=== PATIENT | male | born 1960 | race Caucasian/White ===

== ENCOUNTER 2024-07-29 02:59 | Emergency (ER) | payer OTHER ==
[~2024-07-29] VITALS: Ht 177.8 cm; Wt 110.0 kg
[2024-07-29 03:18] LABS: EOSINOPHILS 3.2 % (0-6); HEMATOCRIT 45.1 % (35.0-50.0); HEMOGLOBIN 15.5 g/dL (12.0-18.0); LYMPHOCYTES 28.4 % (24-44); MCH 31.2 (27-36); MCHC 34.5 g/dl (30-36); MCV 90.4 fl (81-99); MONOCYTES 11.5 % (0-12); NEUTROPHILS 55.9 % (39-80); PLATELET COUNT 246 K/uL (140-440); RBC 4.99 M/ul (4.3-5.7); RDW 13.4 (10.5-15.0)
[2024-07-29] MEDS ORDERED: KETOROLAC TROMETHAMINE 15 MG/ML VIAL IV ONE (03:30)
[2024-07-29] MEDS ORDERED: ondansetron HCL 4 MG/2 ML VIAL IV ONE (03:30)
[2024-07-29] MEDS ORDERED: TAMSULOSIN HCL 0.4 MG CAP PO ONE (03:30)
[2024-07-29] MEDS ORDERED: LACTATED RINGER'S 1,000 ML IV ONE (03:30)
[2024-07-29] MEDS ORDERED: HYDROmorphone HCL 1 MG/ML SYR IV PRN (03:30)
[2024-07-29 03:42] LABS: ALBUMIN 3.8 g/dL (3.4-5.0); ALBUMIN/GLOBULIN RATIO 0.9 (1.1-2.4); BILIRUBIN, TOTAL 0.6 ng/dL (0.2-1.0); BUN/CREATININE RATIO 10.71 (6.0-28.6); CREATININE, SERUM 1.96 mg/dL (0.70-1.30)
[2024-07-29 04:48] LABS: BILIRUBIN, URINE NEGATIVE (negative); BLOOD/HGB, URINE NEGATIVE (Negative); KETONE, URINE TRACE (Negative); LEUK ESTERASE, URINE NEGATIVE (negative); NITRITE, URINE NEGATIVE (negative)
[2024-07-29] MEDS ORDERED: HYDROCODONE BIT/ACETAMINOPHEN 5/325 MG 1 TAB HOME.PACK PO ONE (05:00)
[2024-07-29] MEDS ORDERED: FLOMAX0.4 MG PO (05:02)
[2024-07-29 05:19] VITALS: BP 158/89
== END 2024-07-29 05:20 | disposition home or self-care (01) ==
LOC: ED 02:59
PROVIDERS: Internal Medicine
DX: N13.2 Hydronephrosis with renal and ureteral calculous obstruction (principal); Z88.5 Allergy status to narcotic agent; Z88.8 Allergy status to other drugs, medicaments and biological substances
CPT/HCPCS: 36415; 74176; 80053; 81003; 83036; 83690; 85025; 96374; 99284-25; A9270; J1885; J7121

== ENCOUNTER 2024-08-01 15:31 | Emergency (ER) | payer OTHER ==
[~2024-08-01] VITALS: Ht 177.8 cm; Wt 109.3 kg
[~2024-08-01 15:31] MED LIST: FLOMAX0.4 MG PO
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
[2024-08-01 16:23] LABS: BASOPHILS 0.9 % (0-2); EOSINOPHILS 1.3 % (0-6); HEMATOCRIT 44.6 % (35.0-50.0); LYMPHOCYTES 19.8 % (24-44); MCH 30.5 (27-36); MCHC 33.6 g/dl (30-36); MCV 90.7 fl (81-99); MONOCYTES 10.5 % (0-12); NEUTROPHILS 67.5 % (39-80); PLATELET COUNT 282 K/uL (140-440); RBC 4.92 M/ul (4.3-5.7); RDW 13.2 (10.5-15.0)
[2024-08-01] MEDS ORDERED: KETOROLAC TROMETHAMINE 30 MG/ML VIAL IV ONE (16:30)
[2024-08-01] MEDS ORDERED: HYDROmorphone HCL 1 MG/ML SYR IV PRN (16:30)
[2024-08-01] MEDS ORDERED: SODIUM CHLORIDE 0.9% 1,000 ML IV ONE (16:30)
[2024-08-01 16:31] LABS: ALBUMIN 3.9 g/dL (3.4-5.0); ALBUMIN/GLOBULIN RATIO 0.91 (1.1-2.4); ANION GAP 12.3 (7-21); BILIRUBIN, TOTAL 0.6 ng/dL (0.2-1.0); BUN/CREATININE RATIO 10.84 (6.0-28.6); CALCIUM 9.7 mg/dL (8.5-10.1); CREATININE, SERUM 2.12 mg/dL (0.70-1.30); POTASSIUM 4.3 mmol/L (3.5-5.1); PROTEIN, TOTAL 8.2 g/dL (6.4-8.2)
[2024-08-01 17:34] LABS: BILIRUBIN, URINE NEGATIVE (negative); BLOOD/HGB, URINE NEGATIVE (Negative); KETONE, URINE NEGATIVE (Negative); LEUK ESTERASE, URINE NEGATIVE (negative); NITRITE, URINE NEGATIVE (negative)
[2024-08-01] MEDS ORDERED: PERCOCET 7.5-31 EACH PO (18:21)
[2024-08-01] MEDS ORDERED: OXYCODONE/APAP 5/325 TAB PO ONE (18:30)
[2024-08-01 18:47] VITALS: BP 113/91
== END 2024-08-01 18:50 | disposition home or self-care (01) ==
LOC: ED 15:31
PROVIDERS: Emergency Medicine
DX: N20.1 Calculus of ureter (principal); Z87.442 Personal history of urinary calculi; Z88.8 Allergy status to other drugs, medicaments and biological substances; Z88.5 Allergy status to narcotic agent; Z79.899 Other long term (current) drug therapy
CPT/HCPCS: 36415; 80053; 81003; 85025; 96374; 96375; 99284-25; J1170; J1885; J7030

== ENCOUNTER 2024-08-04 03:50 | Emergency (ER) | payer OTHER ==
[~2024-08-04] VITALS: Ht 177.8 cm; Wt 106.0 kg
[~2024-08-04 03:50] MED LIST changes: +PERCOCET 7.5-31 EACH PO
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
[2024-08-04 04:31] LABS: BILIRUBIN, URINE NEGATIVE (negative); BLOOD/HGB, URINE NEGATIVE (Negative); KETONE, URINE NEGATIVE (Negative); LEUK ESTERASE, URINE NEGATIVE (negative); NITRITE, URINE NEGATIVE (negative)
[2024-08-04 04:36] LABS: BACTERIA, URINE RARE /hpf (negative); CASTS, URINE NONE SEEN \\lpf; COLLECTION TYPE, URINE CLEAN CATCH; CRYSTALS, URINE NONE SEEN (0-1+); EPITHELIAL CELLS, URINE SQUAMOUS 1+ /lpf (0-1+); RED BLOOD CELLS, URINE 0-1 /hpf (0-5); REFLEX CULTURE, URINE No (No); WHITE BLOOD CELLS, URINE 0-1 /HPF (0-5)
[2024-08-04 05:00] VITALS: BP 144/90
== END 2024-08-04 05:00 | disposition home or self-care (01) ==
LOC: ED 03:50
PROVIDERS: Emergency Medicine
DX: N20.0 Calculus of kidney (principal); Z88.5 Allergy status to narcotic agent; Z88.8 Allergy status to other drugs, medicaments and biological substances; Z79.899 Other long term (current) drug therapy
CPT/HCPCS: 81001; 99284